=== PATIENT | female | born 1965 | race Caucasian/White ===

== ENCOUNTER 2021-09-28 11:09 | Outpatient (CLI) | payer OTHER, MEDICAID, SELFPAY ==
[2021-09-28] MEDS: 0.9% Saline Lock 10 ML Syringe IV (11:31)
[2021-09-28 11:32] VITALS: BP 100/63; PULSE 65; RESP 16; TEMP 36.7; O2SAT 99; BMI 25.8
[2021-09-28 12:04] VITALS: BP 98/56; PULSE 66; RESP 16; TEMP 37.3; O2SAT 99
[2021-09-28 12:53] VITALS: BP 102/57; PULSE 70; RESP 16; TEMP 37; O2SAT 98
== END 2021-09-28 13:00 | disposition home or self-care (01) ==
LOC: MS3OUT 11:11 → MS3 11:11
PROVIDERS: Visit Provider Nurse Practitioner Acute Care
DX: Z23 Encounter for immunization (principal); U07.1 COVID-19
CPT/HCPCS: J7050; M0245; Q0245; A4216